=== PATIENT | female | born 1965 | race Caucasian/White ===

== ENCOUNTER → 2020-07-22 | Outpatient (CLI) | payer SELFPAY ==
[~2020-07-22] MED LIST: HYDACE5 PO; IBUP400 PO
== END ==
LOC: LAB SHORT 18:07 → PLD 18:07
DX: S71.151D Open bite, right thigh, subsequent encounter (principal)
CPT/HCPCS: 87070; 87205

== ENCOUNTER → 2020-07-25 | Outpatient (CLI) | payer SELFPAY | END | disposition home or self-care (01) | LOC: LAB 11:50 → LAB SHORT 11:50 | DX: S71.151D Open bite, right thigh, subsequent encounter (principal) | CPT/HCPCS: 87070; 87075; 87106; 87205 ==

== ENCOUNTER 2020-08-01 00:15 | Day surgery (SDC) | payer SELFPAY | END 2020-08-01 23:01 | disposition home or self-care (01) | LOC: WOUND 00:15 | DX: S71.152A Open bite, left thigh, initial encounter (principal); F17.200 Nicotine dependence, unspecified, uncomplicated; W54.0XXA Bitten by dog, initial encounter | CPT/HCPCS: A9270 ==

== ENCOUNTER 2020-08-08 00:46 | Day surgery (SDC) | payer SELFPAY | END 2020-08-08 22:58 | disposition home or self-care (01) | LOC: WOUND 00:46 | DX: S71.152A Open bite, left thigh, initial encounter (principal); W54.0XXA Bitten by dog, initial encounter | CPT/HCPCS: A9270 ==

== ENCOUNTER 2020-08-22 00:25 | Day surgery (SDC) | payer SELFPAY | END 2020-08-22 22:50 | disposition home or self-care (01) | LOC: WOUND 00:25 | DX: S71.102D Unspecified open wound, left thigh, subsequent encounter (principal); W54.0XXD Bitten by dog, subsequent encounter | CPT/HCPCS: A9270; G0463 ==

== ENCOUNTER 2020-08-29 01:41 | Day surgery (SDC) | payer OTHER | END 2020-08-29 22:50 | disposition home or self-care (01) | LOC: WOUND 01:41 | DX: S71.152A Open bite, left thigh, initial encounter (principal); W54.0XXA Bitten by dog, initial encounter | CPT/HCPCS: A9270; G0463 ==

== ENCOUNTER 2020-09-05 00:32 | Day surgery (SDC) | payer SELFPAY | END 2020-09-05 22:40 | disposition home or self-care (01) | LOC: WOUND 00:32 | DX: S71.152A Open bite, left thigh, initial encounter (principal); W54.0XXA Bitten by dog, initial encounter | CPT/HCPCS: A9270; G0463 ==

== ENCOUNTER 2020-09-12 00:34 | Day surgery (SDC) | payer OTHER | END 2020-09-12 23:03 | disposition home or self-care (01) | LOC: WOUND 00:34 | DX: S71.102D Unspecified open wound, left thigh, subsequent encounter (principal); W54.0XXD Bitten by dog, subsequent encounter | CPT/HCPCS: A9270; G0463 ==

== ENCOUNTER 2020-09-26 00:09 | Day surgery (SDC) | payer SELFPAY | END 2020-09-26 22:53 | disposition home or self-care (01) | LOC: WOUND 00:09 | DX: S71.102D Unspecified open wound, left thigh, subsequent encounter (principal); W54.0XXD Bitten by dog, subsequent encounter | CPT/HCPCS: A9270 ==

== ENCOUNTER 2020-10-10 00:21 | Day surgery (SDC) | payer SELFPAY | END 2020-10-10 22:58 | disposition home or self-care (01) | LOC: WOUND 00:21 | DX: S70.372A Other superficial bite of left thigh, initial encounter (principal); W54.0XXA Bitten by dog, initial encounter | CPT/HCPCS: G0463 ==